=== PATIENT | male | born 1960 | race Caucasian/White ===

== ENCOUNTER 2022-12-25 14:51 | Outpatient (CLI) | payer BC | END 2022-12-25 14:52 | disposition home or self-care (01) | LOC: CSHRAD 14:51 | PROVIDERS: ATTEND Internal Medicine Rheumatology | DX: M25.541 Pain in joints of right hand (principal); M25.542 Pain in joints of left hand; M19.042 Primary osteoarthritis, left hand; M19.041 Primary osteoarthritis, right hand ==

== ENCOUNTER 2025-07-19 10:04 | Emergency (ER) | payer MEDICARE, BC ==
[2025-07-19 10:55] LABS: #Basophils 0.08 10x3/uL (0.0-0.2); #Eosinophils 0.24 10x3/uL (0.0-0.5); #Monocytes 0.88 10x3/uL (0.0-1.1); #Neutrophils 5.32 10x3/uL (1.5-8.4); %Basophils 0.9 % (0.0-2.0); %Eosinophils 2.6 % (0.0-6.0); %Lymphocytes 30.2 % (18.0-47.0); %Monocytes 9.4 % (0.0-10.0); %Neutrophils 56.8 % (40.0-75.0); Hematocrit 42.7 % (38.8-50.0); Hemoglobin 14.3 g/dL (13.5-17.5); Mean Corpuscular Hemoglobin 30.8 pg (27.0-33.0); Mean Corpuscular Volume 91.8 fL (81.2-95.1); Platelet Count 307 10x3/uL (150-450); Red Blood Cell (RBC) Count 4.65 10x6/uL (4.32-5.72); White Blood Cell (WBC) Count 9.36 10x3/uL (3.5-10.5)
[2025-07-19 11:14] LABS: ALT (SGPT) 34 U/L (Less than 45); AST (SGOT) 27 U/L (11-34); Albumin 3.8 g/dL (3.1-4.5); Alkaline Phosphatase 66 U/L (40-110); Anion Gap 18 mmol/L (10-20); BUN (Urea Nitrogen) 20 mg/dL (8.4-25.7); Bilirubin, Total 0.4 mg/dL (0.3-1.2); Calc. Creatinine Clearance 0 mL/min (70-130); Calcium 9.0 mg/dL (7.8-10.44); Carbon Dioxide 23 mmol/L (23-31); Chloride 106 mmol/L (98-107); Globulin 3.5 g/dL (2.4-3.5); Glucose 94 mg/dL (80-115); Magnesium 2.1 mg/dL (1.6-2.6); Potassium 4.5 mmol/L (3.5-5.1); Sodium 142 mmol/L (136-145)
[2025-07-19 11:21] LABS: Troponin I Less than 0.010 ng/mL (< 0.028)
[2025-07-19] MEDS ORDERED: Iopamidol 370 76% 100 ML VIAL ONE (13:49)
== END 2025-07-19 13:26 | disposition home or self-care (01) ==
LOC: CSHERS 10:04
DX: G93.0 Cerebral cysts (principal); I86.1 Scrotal varices; R29.700 NIHSS score 0
CPT/HCPCS: 70496; 70498; 76870; 80053; 83735; 84484; 85025; 93005; 93976; Q9967